=== PATIENT | male | born 1985 | race Caucasian/White ===

== ENCOUNTER 2016-12-03 17:33 | Emergency (ER) | payer OTHER ==
--- NOTE | 2016-12-03 18:51 | XRAY Preliminary Report ---
Exam: XR Ankle 3 View LT IMPRESSION: Soft tissue swelling. No definite fracture but with caveat for possible distal talus avul rudolph. [facility] SITE ID: [id number]
--- NOTE | 2016-12-03 18:53 | XRAY Report ---
EXAM: LEFT ANKLE RADIOGRAPHY EXAM DATE: 12/03/2016 06:28 PM. CLINICAL HISTORY: Unable to ambulate-twisted while running. COMPARISON: None. TECHNIQUE: 3 views. FINDINGS: Bones: Small calcification along the dorsum of the distal talus on lateral view, chronic change versu s small avulsion. Otherwise unremarkable. Joints: Normal. No effusion. No subluxations. The ankle mortise is normally aligned. Soft Tissues: Mild soft tissue swelling over the lateral malleolus. IMPRESSION: Soft tissue swelling. No definite fracture but with caveat for possible distal talus avul rudolph. [facility] Referring Provider Line: [phone] SITE ID: [id number]
--- NOTE | 2016-12-03 20:31 | ED Physician Documentation ---
PD HPI LOWER EXT INJURY - Stated complaint Stated Complaint: L ANKLE INJURY - Chief complaint Chief Complaint: Ext Problem - History obtained from History obtained from: Patient - History of Present Illness PD HPI LOW EXT INJURY LOCATION: Left, Ankle Type of injury: Twist Where injury occurred: Home Timing - onset: Today Timing - details: Abrupt onset Improved by: Immobilization Worsened by: Moving, Palpating Associated symptoms: Swelling Contributing factors: No: Anticoagulated, Prior ortho surgery Similar symptoms before: Work up / diagnostics, Treatment Recently seen: Not recently seen - Additional information Additional information: Patient is a 31 year old male with no significant past medical history who is presenting to the emergency department for left ankle pain. patient states that he was walking and he got his foot caught and everted his ankle. patient states that he a had a prior injury to the same area. Review of Systems Constitutional: denies: Fever, Chills Ears: denies: Ear pain Nose: denies: Congestion, Epistaxis Throat: denies: Dental pain / toothache Cardiac: denies: Chest pain / pressure, Palpitations GI: denies: Abdominal Pain, Nausea, Vomiting : denies: Dysuria, Frequency Skin: denies: Abrasion (s), Laceration (s) Musculoskeletal: reports: Extremity pain, Extremity swelling Neurologic: denies: Generalized weakness, Focal weakness, Numbness Immunocompromised: denies: Immunocompromised PD PAST MEDICAL HISTORY - Past Medical History Past Medical History: No - Past Surgical History Past Surgical History: No - Present Medications Home Medications: Ambulatory Orders Medication Instructions Recorded Confirmed No Known Home Medications [No 12/03/16 12/03/16 Known Home Medications] - Allergies Allergies/Adverse Reactions: Allergies Allergy/AdvReac Type Severity Reaction Status Date / Time No Known Drug Allergies Allergy Verified 12/03/16 17:39 - Social History Does the pt smoke?: No Smoking Status: Never smoker Does the pt drink ETOH?: No Does the pt have substance abuse?: No - Immunizations Immunizations are current?: Yes - POLST Patient has POLST: No PD ED PE NORMAL - Vitals Vital signs reviewed: Yes - General General: Alert and oriented X 3, No acute distress - HEENT HEENT: Atraumatic, PERRL - Neck Neck: No bony TTP - Cardiac Cardiac: RRR - Respiratory Respiratory: No respiratory distress - Abdomen Abdomen: Soft, Non tender, Non distended - Derm Derm: Normal color, Warm and dry, No rash - Neuro Neuro: Alert and oriented X 3, No motor deficit, No sensory deficit, Normal speech - Psych Psych: Normal mood, Normal affect PD ED PE EXPANDED - Extremities Extremities: Left ankle (tenderness and swelling of left lateral maleolus) Results - Vitals Vitals: Vital Signs - 24 hr 12/03/16 12/03/16 17:36 20:36 Temperature 36.5 C 36.8 C Heart Rate 103 H 89 Respiratory 16 18 Rate Blood Pressure 145/97 H 128/85 H O2 Saturation 99 98 Oxygen O2 Source Room air - Rads (name of study) ankle x-ray Radiology: Final report received (possible avulsion fracture) PD MEDICAL DECISION MAKING - ED course Complexity details: reviewed old records, reviewed results, re-evaluated patient , considered differential, d/w patient, d/w family ED course: Patient was seen and examined at bedside. imaging was ordered. when patient returned the results were reviewed. findings showed a possible avulsion fracture. Patient was placed in a boot. Patient required no further inpatient work up and was stable for discharge with outpatient follow up. Departure - Departure Disposition: 01 Home, Self Care Clinical Impression: Avulsion fracture of ankle Condition: Good Instructions: ED Splint Care Aircast Splint Boot Follow-Up: primary,care provider [Other] - Within 1 week Comments: Your symptoms today are either being caused by an ankle sprain or a small avulsion fracture. You should wear the brace for comfort. You should elevate the ankle and use ice. You can take motrin or tylenol as needed for pain. You should transfer to an bryan bandage if your symptoms don't improve. You may return to the emergency department at any time for new, worsening or uncontrollable symptoms. Discharge Date/Time: 12/03/16 20:36
[2016-12-03 20:37] VITALS: BP 128/85
== END 2016-12-03 20:36 | disposition home or self-care (01) ==
LOC: ED 17:33
DX: S82.892A Other fracture of left lower leg, initial encounter for closed fracture (principal); X50.0XXA Overexertion from strenuous movement or load, initial encounter; Y92.019 Unspecified place in single-family (private) house as the place of occurrence of the external cause
CPT/HCPCS: 99283; 99284